=== PATIENT | male | born 1975 | race Caucasian/White ===

== ENCOUNTER 2019-02-05 15:23 | Emergency (ER) | payer SELFPAY ==
[~2019-02-05] VITALS: Ht 177 cm; Wt 82.0 kg
[2019-02-05] MEDS ORDERED: PRD20T PO (15:34)
[2019-02-05] MEDS ORDERED: AMOX500C2 PO (15:34)
--- NOTE | 2019-02-05 15:35 | ED EENT ---
History of Present Illness General Stated Complaint: CAN'T HEAR OUT OF L EAR Source: patient Exam Limitations: no limitations History of Present Illness Date Seen by Provider: Feb 05, 2019 Time Seen by Provider: 15:31 Initial Comments Can't hear out of his left ear for 2 weeks. No fever no pain no other symptoms no nasal congestion Timing/Duration: gradual Severity: moderate Location: ear (L) Associated Symptoms: denies symptoms Allergies and Home Medications Patient Home Medication List Home Medication List Reviewed: Yes Review of Systems Review of Systems Constitutional: see HPI Eyes: No Symptoms Reported Ears: See HPI Nose: no symptoms reported Mouth: no symptoms reported Throat: no symptoms reported Respiratory: no symptoms reported Cardiovascular: no symptoms reported Musculoskeletal: no symptoms reported Past Kjrgmig-Jtiumu-Wdlxsd Hx Patient Social History Recent Foreign Travel: No Contact w/Someone Who Travel: No Physical Exam Height, Weight, BMI Height: '" Weight: lbs. oz. kg; BMI Method: General Appearance: WD/WN, no apparent distress Eyes: bilateral eye normal inspection, bilateral eye PERRL, bilateral eye EOMI Ears: left ear TM bulging, left ear other (serous otitis. No mastoid tenderness or redness) Mouth/Throat: normal mouth inspection, pharynx normal Neck: non-tender, full range of motion Neurologic/Psychiatric: alert, normal mood/affect, oriented x 3 Skin: normal color, warm/dry Departure Impression Primary Impression: Serous otitis media Qualified Codes: H65.02 - Acute serous otitis media, left ear Additional Impression: Hearing loss in left ear Qualified Codes: H91.92 - Unspecified hearing loss, left ear Disposition: HOME, SELF-CARE Condition: Stable Departure-Patient Inst. Decision time for Depature: 15:33 Referrals: MERA CREWS MD,AVINASH STEWART,DIANA BLOOM,RAMIRO BHATIA,VAN SMYTH,LOCAL PHYSICIAN (PCP) Primary Care Physician Patient Instructions: Serous Otitis Media, Hearing Loss in Adults Add. Discharge Instructions: 1. Antibiotics and steroids as directed. Tomorrow, call either Dr. Crews from ear nose and throat specialty or a family physician to make an appointment to be seen for further evaluation of this problem.. Scripts Prednisone (Prednisone) 20 Mg Tab 40 MG PO DAILY, #6 TAB 0 Refills Prov: MADHURI HURST LOCKSTITCH WAISTLINE JOINER 12/22/19 Amoxicillin (Amoxicillin) 500 Mg Capsule 500 MG PO TID, #21 CAP 0 Refills Prov: MADHURI HURST APRN 02/05/19 MADHURI HURST APRN Feb 05, 2019 15:35
[2019-02-05 15:40] VITALS: BP 102/66
== END 2019-02-05 15:45 | disposition home or self-care (01) ==
LOC: ER 15:25
DX: H65.92 Unspecified nonsuppurative otitis media, left ear (principal)
CPT/HCPCS: 99282

== ENCOUNTER 2020-01-09 10:31 | Emergency (ER) | payer SELFPAY ==
[~2020-01-09] VITALS: Ht 177 cm; Wt 81.6 kg
[~2020-01-09 10:31] MED LIST: AMOX500C2 PO; PRD20T PO
[2020-01-09] MEDS ORDERED: KETOROLAC 60 MG/2 ML VIAL IM STA (11:06)
[2020-01-09] MEDS ORDERED: ORPHENADRINE 60 MG/2 ML (NORFLEX) AMP (ED ONLY) IM STA (11:06)
--- NOTE | 2020-01-09 11:13 | ED Back Pain ---
General Chief Complaint: Back Problems Stated Complaint: L BACK PAIN Nursing Triage Note: PT PRESENTS TO ED WITH COMPLAINTS OF CHRONIC LOW BACK PAIN THAT WORSENED OVER THE LAST COUPLE OF DAYS WHEN HE WAS AT WORK. Nursing Sepsis Screen: No Definite Risk Source of Information: Patient Exam Limitations: No Limitations History of Present Illness Date Seen by Provider: Jan 09, 2020 Time Seen by Provider: 10:57 Initial Comments Here with report of low back pain on the left side. States it started this weekend when he was working at home worsened yesterday and today. 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 That made things worse. Denies bowel or bladder incontinence and is walking okay but has pain. Has not had anything for the pain. Denies fever or chills. Denies weakness. 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 Location: Lumbar Spine, Paraspinous Muscles Timing/Duration: 3-4 Days Severity: Moderate Pain/Injury Location: Back Radiation: Buttocks Method of Injury: Other (Lifting) Modifying Factors: Improves With Immobilization; Worse With Movement Associated Symptoms: muscle spasms; No fever, No weakness, No numbness in leg s/feet, No tingling in legs/feet, No sensory/motor loss; lower back pain; No loss of bladder control, No loss of bowel control Allergies and Home Medications Allergies Coded Allergies: diphenhydramine (Verified Allergy, Unknown, 01/09/20) acetaminophen (Verified Adverse Reaction, Unknown, Nausea, 01/09/20) Home Medications Amoxicillin 500 Mg Capsule, 500 MG PO TID Prescribed by: MADHURI HURST on 02/05/19 1534 Prednisone 20 Mg Tab, 40 MG PO DAILY Prescribed by: MADHURI HURST on 02/05/19 1534 Patient Home Medication List Home Medication List Reviewed: Yes Review of Systems Constitutional: see HPI; No chills, No fever Respiratory: no symptoms reported Cardiovascular: no symptoms reported Musculoskeletal: see HPI Skin: No change in color, No lesions Psychiatric/Neurological: See HPI Past Jfgutsb-Ymqcok-Rhddaz Hx Past Med/Social Hx: Reviewed Nursing Past Med/Soc Hx Patient Social History Alcohol Use: Occasionally Uses Recreational Drug Use: No Smoking Status: Current Everyday Smoker Type Used: Cigarettes Recent Foreign Travel: No Contact w/Someone Who Travel: No Recent Infectious Disease Expo: No Recent Hopitalizations: No Physical Abuse: No Sexual Abuse: No Mistreated: No Fear: No Seasonal Allergies Seasonal Allergies: No Past Medical History Surgeries: No Respiratory: No Cardiac: No Neurological: No Genitourinary: No Gastrointestinal: No Musculoskeletal: No Endocrine: No HEENT: No Cancer: No Psychosocial: No Integumentary: No Blood Disorders: No Adverse Reaction/Blood Tranf: No Family Medical History Reviewed Nursing Family Hx Physical Exam Vital Signs Vital Signs - First Documented 01/09/20 10:40 Temp 36.1 Pulse 71 Resp 16 B/P (MAP) 127/81 (96) Pulse Ox 99 Capillary Refill : Less Than 3 Seconds Height, Weight, BMI Height: '" Weight: lbs. oz. kg; 26.00 BMI Method: General Appearance: WD/WN, Mild Distress Cardiovascular: Regular Rate, Rhythm, No Murmur Respiratory: Lungs Clear, Normal Breath Sounds Back: Muscle Spasm; No Vertebral Tenderness; Other (Left paraspinous muscle s pasms and pain in the lumbar region) Extremity: Normal Range of Motion, Non Tender Neurologic/Psychiatric: Alert, Oriented x3 Progress/Results/Core Measures Results/Orders Vital Signs/I&O 01/09/20 10:40 Temp 36.1 Pulse 71 Resp 16 B/P (MAP) 127/81 (96) Pulse Ox 99 Blood Pressure Mean: 96 Progress Progress Note : Progress Note Seen and evaluated. Toradol 60 mg IM and Norflex 60 mg IM. Discharged home with return precautions. Patient verbalized understanding of instructions and agreement with plan. Departure Impression Primary Impression: Strain of lumbar paraspinal muscle Qualified Codes: S39.012A - Strain of muscle, fascia and tendon of lower back, initial encounter Additional Impression: Low back pain Qualified Codes: M54.5 - Low back pain Disposition: HOME, SELF-CARE Condition: Stable Departure-Patient Inst. Decision time for Depature: 11:12 Referrals: NO,LOCAL PHYSICIAN (PCP/Family) Primary Care Physician Patient Instructions: Lumbar Muscle Strain (DC), Low Back Pain (DC) Add. Discharge Instructions: All discharge instructions reviewed with patient and/or family. Voiced understanding. Take medication as directed. You may use [id number] Icy Hot with lidocaine patches, Aspercreme with lidocaine patches, Salonpas with lidocaine patches or similar items to area of concern per package directions. Follow-up w ith your doctor in a few days for recheck. Return for worse pain, weakness, numbness between your legs, difficulty with walking or going to the bathroom or other concerns as needed. Scripts Cyclobenzaprine HCl (Cyclobenzaprine HCl) 10 Mg Tablet 10 MG PO Q8H PRN for SPASMS, #15 TAB 0 Refills Prov: JORDANA KILPATRICK MD 01/09/20 Prednisone (Prednisone) 20 Mg Tab 40 MG PO DAILY, #14 TAB 0 Refills Prov: JORDANA KILPATRICK MD 01/09/20 Naproxen (Naprosyn) 500 Mg Tablet 500 MG PO BID, #30 TAB 0 Refills Prov: JORDANA KILPATRICK MD 01/09/20 JORDANA KILPATRICK MD Jan 09, 2020 11:12
[2020-01-09] MEDS ORDERED: PRD20T PO (11:14)
[2020-01-09] MEDS ORDERED: CYCL10TA9 PO (11:14)
[2020-01-09] MEDS ORDERED: NAPR-1071 PO (11:14)
[2020-01-09 11:36] VITALS: BP 107/72
== END 2020-01-09 11:35 | disposition home or self-care (01) ==
LOC: EDUNIT# 10:31 → ER 10:32
DX: S39.012A Strain of muscle, fascia and tendon of lower back, initial encounter (principal); F17.210 Nicotine dependence, cigarettes, uncomplicated; Z88.6 Allergy status to analgesic agent; Z88.8 Allergy status to other drugs, medicaments and biological substances; Z79.52 Long term (current) use of systemic steroids; X50.0XXA Overexertion from strenuous movement or load, initial encounter
CPT/HCPCS: 99284

== ENCOUNTER → 2020-05-27 | Outpatient (CLI) | payer SELFPAY ==
[~2020-05-27] MED LIST changes: +CYCL10TA9 PO; +NAPR-1071 PO
--- NOTE | 2020-05-27 12:41 | Diagnostic Imaging Report ---
EXAMINATION: Magnetic resonance imaging of the left shoulder without contrast. DATE: May 27, 2020. COMPARISON: None. HISTORY: 45-year-old male, left shoulder pain. TECHNIQUE: Magnetic Resonance Imaging sequences were performed of the shoulder without contrast. FINDINGS: ROTATOR CUFF, LIGAMENTS, TENDONS, AND MUSCLES: The supraspinatus, infraspinatus, teres minor, and subscapularis tendons and muscles are intact. There is low-level edema in the supraspinatus and infraspinatus muscles. There is no fatty muscle atrophy. LONG HEAD OF BICEPS: The biceps labral attachment and long head of the biceps tendon is intact. The long head of the biceps tendon is normally positioned within the bicipital groove. GLENOHUMERAL JOINT: The humeral head is well positioned relative to the glenoid. The labrum is grossly intact. There is no identified paralabral cyst. The articular cartilage is grossly intact. There is no joint effusion. ACROMIOCLAVICULAR JOINT: The acromioclavicular joint is normally aligned. The coracoclavicular and coracoacromial ligaments are intact. There are mild acromioclavicular degenerative changes without undersurface osteophyte. BONE: There is no os acromiale. There is no Hill-Sachs deformity. There is degenerative related marrow edema adjacent to the acromioclavicular joint. There is no acute fracture, bone contusion, or evidence of osteonecrosis. BURSAE AND SOFT TISSUES: The bursae and soft tissue surrounding the shoulder are unremarkable. IMPRESSION: 1. Intact rotator cuff tendons and proximal long head of biceps tendon. 2. Low level edema in the supraspinatus and infraspinatus muscles. Differential diagnostic considerations would include low-grade muscle strains, early denervation related signal changes, and/or myositis. No MRI visible causes of denervation related edema in the included field of view. 3. Mild acromioclavicular degenerative changes without undersurface osteophyte. 4. Grossly intact labrum and unremarkable additional glenohumeral joint evaluation. 5. No acute fracture, bone contusion, or evidence of osteonecrosis. Dictated by: Dictated on workstation # [id number]
--- NOTE | 2020-05-27 12:54 | Diagnostic Imaging Report ---
Clinical indication: Patient with neck and left shoulder and arm pain couple weeks ago. No known injury. Exam: MRI of the cervical spine performed without IV contrast. Sequences include sagittal T1, sagittal T2, sagittal T2 fat-sat, and axial T2. Comparison: None. Findings: Limited visualization of posterior fossa unremarkable. There is mild cord deformity involving the C4-C5 and C5-C6 level due to disk disease. There is no cervical cord signal abnormality. There is straightening of the cervical spine posture. There is no acute cervical spine fracture or dislocation. There is an intraosseous hemangioma within the C4 and C6 vertebra. There is no significant paraspinal soft tissue abnormality. There are degenerative spurs anteriorly involving the mid to lower cervical spine. C1-C2: There is no significant central canal narrowing. C2-C3: There is mild bilateral facet arthropathy. There is mild left neural foramen narrowing and no significant central canal narrowing. There is at least mild central canal narrowing. There is a small posterior disk bulge. C3-C4: Mildly hypertrophic left uncinate spurs are seen with moderate to severe left neural foramen narrowing. There is at least mild right neural foramen narrowing. There is moderate central canal stenosis. C4-C5: There is a diffuse disk bulge with superimposed moderate sized disk extrusion/herniation in the left subarticular and left foraminal region. There is severe left neural foramen narrowing and moderate to severe right neural foramen narrowing. There is severe central canal stenosis. There is mild loss of disk space height. C5-C6: There is a diffuse disk bulge with moderate loss of disk space height and bilateral uncinate spurs. There is severe bilateral neural foramen narrowing. There is moderate to severe central canal stenosis. C6-C7: There is a small posterior disk bulge. There is left-sided disk spurs and mild bilateral facet arthropathy. There is severe left neural foramen narrowing and at least moderate right neural foramen narrowing. There is moderate central canal narrowing. C7-T1: There is at least mild bilateral neural foramen narrowing. There is no significant central canal narrowing. IMPRESSION: 1: There is multilevel cervical spine degenerative disk disease which is described in detail above. 2: There is a C4-C5 diffuse disk bulge with superimposed moderate disk herniation in the left subarticular/foraminal region which causes severe central canal stenosis, severe left neural foramen narrowing and moderate to severe right neural foramen narrowing. 3: There is multilevel central canal stenosis with moderate to severe C5-C6 central canal narrowing and moderate C3-C4 and C6-C7 central canal narrowing. 4: There is multilevel neural foramen narrowing, as described above. Dictated by: Dictated on workstation # [id number]
== END ==
LOC: RAD 10:27
PROVIDERS: ATTEND Pediatrics
DX: M50.321 Other cervical disc degeneration at C4-C5 level (principal); M50.21 Other cervical disc displacement, high cervical region; M47.812 Spondylosis without myelopathy or radiculopathy, cervical region; M48.03 Spinal stenosis, cervicothoracic region
CPT/HCPCS: 72141; 73221

== ENCOUNTER 2022-11-22 20:03 | Inpatient (IN) | payer SELFPAY ==
[~2022-11-22] VITALS: Ht 177.8 cm; Wt 68.5 kg
[~2022-11-22 20:03] MED LIST changes: +CYCL10TA25 PO; -CYCL10TA9 PO
[2022-11-22] MEDS ORDERED: NS IV 1000 ML 1,000 ML IV SCH (20:45)
[2022-11-22] MEDS ORDERED: fentaNYL INJECTION 100 MCG/2 ML VIAL IVP ONE (20:45)
--- NOTE | 2022-11-22 20:51 | ED EENT ---
History of Present Illness General Chief Complaint: Dental Problems/Pain Stated Complaint: DENTAL PAIN/INFECTION Nursing Triage Note: PT AMB TO RM 3 WITH SPOUSE WITH C/O R WISDOM TOOTH PAIN SINCE WEDNESDAY. PT STATES IT RECENTLY GREW IN AND MIGHT BE INFECTED. PT TOOK ALEVE THIS AM AT 0200 Source: patient, family Exam Limitations: no limitations History of Present Illness Date Seen by Provider: Nov 22, 2022 Time Seen by Provider: 20:37 Initial Comments 47-year-old male presents to the ER with complaint of right lower dental pain since Wednesday. He also reports swelling in his face and jaw. Reports difficulty swallowing. Also reports difficulty opening his mouth. Denies shortness of air. Denies fevers. Allergies and Home Medications Allergies Coded Allergies: Penicillins (Unverified Allergy, Unknown, Vomiting, 11/22/22) diphenhydramine (Verified Allergy, Unknown, 01/09/20) acetaminophen (Verified Adverse Reaction, Unknown, Nausea, 01/09/20) Patient Home Medication List Home Medication List Reviewed: Yes Clindamycin HCl (Cleocin HCl) 300 Mg Capsule, 300 MG PO TID Prescribed by: INDIO MAY on 11/24/221736 Hydrocodone/Acetaminophen (Hydrocodone-Acetamin 5-325 mg) 5 Mg-325 Mg Tablet, 1 TAB PO Q4-6HR PRN for PAIN-MODERATE (5-7) Prescribed by: INDIO MAY on 11/24/22 173 Naproxen Sodium (Aleve) 220 Mg Tablet, 220 MG PO Q12H PRN for PAIN-MILD (1-4), (Reported) Entered as Reported by: FABIANA CRAIG on 11/23/22 1301 Last Action: Held Discontinued Medications Amoxicillin (Amoxicillin) 500 Mg Capsule, 500 MG PO TID Discontinued Reason: No Longer Taking Prescribed by: MADHURI HURST on 02/05/19 1534 Last Action: Discontinued Cyclobenzaprine HCl (Cyclobenzaprine HCl) 10 Mg Tablet, 10 MG PO Q8H PRN for SPASMS Discontinued Reason: No Longer Taking Prescribed by: JORDANA KILPATRICK on 01/09/20 1114 Last Action: Discontinued Naproxen (Naprosyn) 500 Mg Tablet, 500 MG PO BID Discontinued Reason: No Longer Taking Prescribed by: JORDANA KILPATRICK on 01/09/20 1114 Last Action: Discontinued Prednisone (Prednisone) 20 Mg Tab, 40 MG PO DAILY Discontinued Reason: No Longer Taking Prescribed by: MADHURI HURST on 02/05/19 1534 Last Action: Discontinued Prednisone (Prednisone) 20 Mg Tab, 40 MG PO DAILY Discontinued Reason: No Longer Taking Prescribed by: JORDANA KILPATRICK on 01/09/20 1114 Last Action: Discontinued Review of Systems Review of Systems Constitutional: see HPI Past Bakiezh-Vsvtok-Mzuqta Hx Patient Social History Tobacco Use?: Yes Tobacco type used: Cigarettes Substance use?: Yes Substance type: Marijuana Alcohol Use?: Yes Alcohol type: Beer, Hard Liquor Pt feels they are or have been: No Seasonal Allergies Seasonal Allergies: No Past Medical History Surgery/Hospitalization HX: NECK SURG, EAR SURG Surgeries: No Respiratory: No Cardiac: No Neurological: No Genitourinary: No Gastrointestinal: No Musculoskeletal: No Endocrine: No HEENT: No Cancer: No Psychosocial: No Integumentary: No Blood Disorders: No Adverse Reaction/Blood Tranf: No Physical Exam Vital Signs Vital Signs - First Documented 11/22/22 20:20 Temp 37.7 Pulse 103 Resp 16 B/P (MAP) 142/93 (109) Pulse Ox 100 O2 Delivery Room Air Height, Weight, BMI Height: '" Weight: lbs. oz. kg; 24.00 BMI Method: General Appearance: WD/WN, no apparent distress Mouth/Throat: dental tenderness, mandibular swelling, other (Floor of mouth swollen, small airway. Only has 1 tooth, this is location of pain) Cardiovascular: regular rate, rhythm Respiratory: lungs clear, normal breath sounds, no respiratory distress, no accessory muscle use Neurologic/Psychiatric: alert, normal mood/affect Skin: normal color, warm/dry Progress/Results/Core Measures Results/Orders Lab Results My Orders Medications Given in ED Vital Signs/I&O Blood Pressure Mean: 109 Progress Progress Note : Progress Note Patient seen and evaluated, resting in bed, no acute distress. Based on exam and symptoms, I am concerned for Darshan's angina. Work-up initiated including CBC, CMP, coags, blood cultures x2, lactic acid. CT soft tissue neck ordered. Labs and CT reviewed. CBC shows elevated WBC 15.8, neutrophil percentage elevated 82. CMP shows decreased potassium 3.1. Lactic acid normal 1.15. Blood glucose slightly elevated 126. Coags normal. CT shows fluid collection in the sublingual space midline area, concerning for abscess. There is also mass effect upon the adjacent structures. No significant airway narrowing or tongue involvement. Concerning for Darshan's angina. There is also enlargement of the right submandibular gland and sialadentis is of concern. Decadron and clindamycin ordered. I called and spoke with Dr. Crews, ENT, he is going to come in and see the patient. He states that the abscess will likely need drained. I discussed the plan of care with the patient. Patient states he wants to leave, because pain medication has not been helping. So far he is gotten fentanyl and morphine. I ordered 1 mg of Dilaudid, he is now resting comfortably. Waiting on Dr. Crews to arrive. Dr. Crews here to evaluate patient. He would like to take patient to the OR tonight. He wants patient admitted to him, he will consult medicine in the morning. He will place admission orders. Diagnostic Imaging Diagonstic Imaging: CT Plain Films/CT/US/NM/MRI: other (neck) Comments [facility], [place] NAME: KIM MUSA [facility] REC#: [id number] PT STATUS: REG ER : 1975 PHYSICIAN: JHONATHAN CLARK APRN ADMIT DATE: 11/22/22/ER Signed Date of Exam:11/22/22 CT NECK (SOFT TISSUE) W CLINICAL INDICATION: Patient with right-sided facial swelling. Rule out Darshan's angina. EXAM: Axial CT scan of the neck soft tissues performed with 75 cc of Omnipaque 350 IV contrast. Sagittal and coronal reformatted images were created. Auto Exposure Controls were utilized during the CT exam to meet ALARA standards for radiation dose reduction. COMPARISON: MRI of the cervical spine without contrast dated 05/27/2020. FINDINGS: There is enlargement of the right submandibular gland with adjacent fat stranding. There appear to be slightly dilated intraglandular ducts of the right submandibular gland. There is no stone seen. There is a fluid collection which is deep to the anterior belly of the digastric muscles and is in the midline area which is beneath the genioglossus muscle and appears to be deep to the mylohyoid muscle, concerning for a sublingual space fluid collection which may represent abscess. This fluid collection measures grossly 4.6 cm x 5.6 cm x 1.9 cm (AP x Trans x CC). There is fat stranding adjacent to the region. There is no significant mass effect upon the tongue or airway narrowing due to this fluid collection. The left submandibular gland and parotid glands are unremarkable. The visualized portions of the oral cavity and tongue show no other significant abnormality. There is skin thickening beneath the region of the chin with adjacent fat stranding. There is prominence of the nasopharyngeal soft tissue, likely reactive. The oropharynx, hypopharynx, and laryngeal soft tissue structures are unremarkable. There are multiple small lymph nodes involving both sides of the neck. The thyroid gland is partially obscured by ACDF hardware. There appears to be a possible nodule involving the right thyroid lobe. Limited visualization of the intracranial structures is unremarkable. The orbits and globes are unremarkable. There is a small amount of secretions involving the left frontal sinus region. There are wall down left mastoidectomy changes seen. There is a small amount of consolidation involving both mastoid air cells. There is C3 through C7 ACDF. The visualized upper lung brannon are clear. Centrilobular emphysema is noted. IMPRESSION: 1: There is a fluid collection in the sublingual space midline area, concerning for an abscess. There is mass effect upon the adjacent structures with no significant mass effect upon the tongue or airway narrowing. These findings may be seen with Darshan's angina. 2: There is enlargement of the right submandibular gland and sialadenitis is of concern. Unknown if the right submandibular gland disease is the culprit for the sublingual space fluid collection. Dictated by: Dictated on workstation # [id number] Dict: 11/22/[id number] Trans: 11/22/222214 [id number] Interpreted by: KATIE HWANG MD Electronically signed by: KATIE HWANG MD 11/22/222214 Departure Communication (Admissions) Time/Spoke to Admitting Phy: 22:55 Dr. Crews, see progress note Impression Primary Impression: Ludwigs angina Additional Impression: Sialadenitis Disposition: ADMITTED INPATIENT Condition: Stable Admissions Decision to Admit Reason: Admit from ER (General) Decision to Admit/Date: Nov 23, 2022 Time/Decision to Admit Time: 00:16 Departure-Patient Inst. Referrals: ONELIA ANSARI DO (PCP/Family) Primary Care Physician Scripts Hydrocodone/Acetaminophen (Hydrocodone-Acetamin 5-325 mg) 5 Mg-325 Mg Tablet 1 TAB PO Q4-6HR PRN for PAIN-MODERATE (5-7), #20 TAB Prov: MERA CREWS MD 11/24/22 Clindamycin HCl (Cleocin HCl) 300 Mg Capsule 300 MG PO TID for 10 Days, #30 CAP Prov: MERA CREWS MD 11/24/22 JHONATHAN CLARK APRN Nov 22, 2022 20:51
[2022-11-22] MEDS ORDERED: NS 100 ML (IVPB) BAG IV ONE (21:00)
[2022-11-22] MEDS ORDERED: IOHEXOL 350 MG/ML 100 ML (OMNIPAQUE 350) VIAL IV ONE (21:00)
[2022-11-22] MEDS ORDERED: HOLD METFORMIN - RECEIVED CONTRAST 20 ML VIAL IV SCH (21:00)
[2022-11-22 21:02] LABS: BASOPHILS % (AUTO) 0 % (0-10); EOSINOPHILS % (AUTO) 0 % (0-10); HEMATOCRIT 46 % (40-54); HEMOGLOBIN 16.4 g/dL (13.3-17.7); LYMPHOCYTES # (AUTO) 1.6 10^3/uL (1.0-4.0); LYMPHOCYTES % (AUTO) 10 % (12-44); MEAN CORPUSCULAR HEMOGLOBIN 32 pg (25-34); MEAN CORPUSCULAR HGB CONC 36 g/dL (32-36); MEAN CORPUSCULAR VOLUME 90 fL (80-99); MEAN PLATELET VOLUME 9.9 fL (9.0-12.2); MONOCYTES # (AUTO) 1.3 10^3/uL (0.0-1.0); MONOCYTES % (AUTO) 8 % (0-12); NEUTROPHILS # (AUTO) 12.9 10^3/uL (1.8-7.8); NEUTROPHILS % (AUTO) 82 % (42-75); PLATELET COUNT 246 10^3/uL (130-400); WHITE BLOOD COUNT 15.8 10^3/uL (4.3-11.0)
[2022-11-22 21:15] LABS: PROTHROMBIN TIME PATIENT 13.3 SEC (12.2-14.7)
[2022-11-22 21:21] LABS: BILIRUBIN,TOTAL 0.9 MG/DL (0.1-1.0); CALCIUM 9.2 MG/DL (8.5-10.1); CREATININE SERUM 0.84 MG/DL (0.60-1.30); POTASSIUM 3.1 MMOL/L (3.6-5.0)
[2022-11-22 21:36] LABS: BAND NEUTROPHILS 1 %; LYMPHOCYTES % (MANUAL) 13 %; MONOCYTES % (MANUAL) 8 %; NEUTROPHILS % (MANUAL) 78 %; RBC MORPH NORMAL
[2022-11-22] MEDS: morphine INJ 4 MG/ML 1 ML (VIAL/SYRINGE) IVP ONE ×2 (22:03→22:06)
--- NOTE | 2022-11-22 22:13 | Diagnostic Imaging Report ---
CLINICAL INDICATION: Patient with right-sided facial swelling. Rule out Darshan's angina. EXAM: Axial CT scan of the neck soft tissues performed with 75 cc of Omnipaque 350 IV contrast. Sagittal and coronal reformatted images were created. Auto Exposure Controls were utilized during the CT exam to meet ALARA standards for radiation dose reduction. COMPARISON: MRI of the cervical spine without contrast dated 05/27/2020. FINDINGS: There is enlargement of the right submandibular gland with adjacent fat stranding. There appear to be slightly dilated intraglandular ducts of the right submandibular gland. There is no stone seen. There is a fluid collection which is deep to the anterior belly of the digastric muscles and is in the midline area which is beneath the genioglossus muscle and appears to be deep to the mylohyoid muscle, concerning for a sublingual space fluid collection which may represent abscess. This fluid collection measures grossly 4.6 cm x 5.6 cm x 1.9 cm (AP x Trans x CC). There is fat stranding adjacent to the region. There is no significant mass effect upon the tongue or airway narrowing due to this fluid collection. The left submandibular gland and parotid glands are unremarkable. The visualized portions of the oral cavity and tongue show no other significant abnormality. There is skin thickening beneath the region of the chin with adjacent fat stranding. There is prominence of the nasopharyngeal soft tissue, likely reactive. The oropharynx, hypopharynx, and laryngeal soft tissue structures are unremarkable. There are multiple small lymph nodes involving both sides of the neck. The thyroid gland is partially obscured by ACDF hardware. There appears to be a possible nodule involving the right thyroid lobe. Limited visualization of the intracranial structures is unremarkable. The orbits and globes are unremarkable. There is a small amount of secretions involving the left frontal sinus region. There are wall down left mastoidectomy changes seen. There is a small amount of consolidation involving both mastoid air cells. There is C3 through C7 ACDF. The visualized upper lung brannon are clear. Centrilobular emphysema is noted. IMPRESSION: 1: There is a fluid collection in the sublingual space midline area, concerning for an abscess. There is mass effect upon the adjacent structures with no significant mass effect upon the tongue or airway narrowing. These findings may be seen with Darshan's angina. 2: There is enlargement of the right submandibular gland and sialadenitis is of concern. Unknown if the right submandibular gland disease is the culprit for the sublingual space fluid collection. Dictated by: Dictated on workstation # [id number]
[2022-11-22] MEDS ORDERED: CLINDAMYCIN 900 MG/50 ML IVPB 50 ML IV ONE (22:15)
[2022-11-22] MEDS ORDERED: dexAMETHasone INJ 10 MG/ML 1 ML VIAL IV ONE (22:15)
[2022-11-22] MEDS ORDERED: HYDROmorphone INJECTION 2 MG/ML VIAL IV ONE (23:15)
[2022-11-23] VITALS (12 sets, daily range): BP systolic 124–162; BP diastolic 72–91
[2022-11-23] MEDS ORDERED: LIDOCAINE/EPI 1%-1:200,000 (XYLOCAINE) 30 ML VIAL ONE (00:35)
--- NOTE | 2022-11-23 00:38 | Progress Note-Pre Operative ---
Pre-Operative Progress Note Date of Available H&P: Nov 23, 2022 Date H&P Reviewed: Nov 23, 2022 Time H&P Reviewed: 12:00 History & Physical: H&P Reviewed, Patient Examed, No changes noted Changes from last HP none Pre-Operative Diagnosis: Right Neck Abscess/Dental Abscess MERA PAEZ MD Nov 23, 2022 00:38
--- NOTE | 2022-11-23 00:39 | Progress Note-Post Operative ---
Post-Operative Progess Note Surgeon (s)/Bank President (s) Surgeon MERA PAEZ MD Bank President n/a Pre-Operative Diagnosis Right Neck Abscess/Dental Abscess Post-Operative Diagnosis same Post-Op Procedure Note Date of Procedure: Nov 23, 2022 Name of Procedure Performed: I/D Deep Right Neck abscess Description & Findings Description and Findings: n/a Anesthesia Type get Estimated Blood Loss minimal Packing none. Specimen(s) collected/removed none MERA PAEZ MD Nov 23, 2022 00:39
[2022-11-23] MEDS ORDERED: LIDOCAINE/EPI 1%-1:200,000 (XYLOCAINE) 30 ML VIAL INJ ONE (00:43)
--- NOTE | 2022-11-23 00:45 | Progress Note ---
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
[2022-11-23] MEDS ORDERED: ONDANSETRON INJECTION 4 MG/2 ML (SDV) ONE ×2 (00:46→00:57)
[2022-11-23] MEDS ORDERED: LIDOCAINE PF 2% 5 ML VIAL ONE (00:46)
[2022-11-23] MEDS ORDERED: SEVOFLURANE (ULTANE) 15 ML INHAL SOLN ONE ×2 (00:46→01:12)
[2022-11-23] MEDS ORDERED: proPOfol INJECTION 200 MG/20 ML VIAL IV ONE (00:46)
[2022-11-23] MEDS ORDERED: MIDAZOLAM INJ 2 MG/2 ML VIAL ONE (00:46)
[2022-11-23] MEDS ORDERED: morphine INJ 10 MG/ML 1ML (SYR OR VIAL) ONE (00:56)
[2022-11-23] MEDS ORDERED: MEPERIDINE INJ 50 MG/ML VIAL ONE (00:56)
[2022-11-23] MEDS ORDERED: HYDROmorphone INJECTION 2 MG/ML VIAL ONE (00:57)
[2022-11-23] MEDS ORDERED: SUCCINYLCHOLINE INJ 20 MG/1 ML 10 ML VIAL ONE (01:00)
[2022-11-23] MEDS ORDERED: LACTATED RINGERS 1,000 ML 1,000 ML IV PRN ×2 (01:30→01:45)
[2022-11-23] MEDS ORDERED: morphine INJ 10 MG/ML 1ML (SYR OR VIAL) IVP ONE (01:45)
[2022-11-23] MEDS ORDERED: ONDANSETRON INJECTION 4 MG/2 ML (SDV) IVP PRN ×2 (01:45)
[2022-11-23] MEDS ORDERED: fentaNYL INJECTION 100 MCG/2 ML VIAL IVP ONE (01:45)
[2022-11-23] MEDS ORDERED: MEPERIDINE INJ 50 MG/ML VIAL IVP ONE (01:45)
[2022-11-23] MEDS: NS IV 1000 ML 1,000 ML IV SCH ×2 (02:38→20:21)
[2022-11-23] MEDS: HYDROmorphone INJECTION 2 MG/ML VIAL IV PRN ×3 (03:04→14:24)
[2022-11-23] MEDS: CLINDAMYCIN 900 MG/50 ML IVPB 50 ML IV SCH ×3 (06:00→22:26)
[2022-11-23] MEDS: dexAMETHasone INJ 4 MG/ML SDV IV SCH ×3 (06:00→22:29)
[2022-11-23] MEDS ORDERED: oxyCODONE 5 MG/5 ML ORAL SOLN 5 ML UDC PO PRN (08:30)
[2022-11-23 08:43] LABS: HEMATOCRIT 44 % (40-54); HEMOGLOBIN 15.3 g/dL (13.3-17.7); MEAN CORPUSCULAR HEMOGLOBIN 32 pg (25-34); MEAN CORPUSCULAR HGB CONC 35 g/dL (32-36); MEAN CORPUSCULAR VOLUME 91 fL (80-99); MEAN PLATELET VOLUME 9.8 fL (9.0-12.2); PLATELET COUNT 221 10^3/uL (130-400); WHITE BLOOD COUNT 16.1 10^3/uL (4.3-11.0)
[2022-11-23 09:01] LABS: CREATININE SERUM 0.79 MG/DL (0.60-1.30); POTASSIUM 4.4 MMOL/L (3.6-5.0)
--- NOTE | 2022-11-23 12:32 | History & Physical ---
HPI History of Present Illness: Has bad wisdom tooth on right side that he states came in this year when it came through it was already rotten. On Wednesday started getting really bad and got to the point he couldn't swallow. Now postdrainage, he can swallow and has tolerated some intake. Source: patient Date seen by provider: Nov 23, 2022 Time Seen by Provider: 12:25 Attending Physician Clemente Granado DO PCP Admitting Physician: Parish Crews MD Attending Physician: Parish Crews MD Consult Date of Admission Nov 23, 2022 at 01:40 Home Medications Home Medications Reviewed patient Home Medication Reconciliation performed by pharmacy medication reconciliations server support technician and/or nursing. Patients Allergies have been reviewed. Allergies Coded Allergies: Penicillins (Unverified Allergy, Unknown, Vomiting, 11/22/22) diphenhydramine (Verified Allergy, Unknown, 01/09/20) acetaminophen (Verified Adverse Reaction, Unknown, Nausea, 01/09/20) [id number] Hx Patient Social History Smoking Status: Current Everyday Smoker Recent Hopitalizations: No Alcohol Use?: Yes (12 pack per month, 2-3 shots per day of [place] Honey) Substance type: Marijuana Tobacco type used: Cigarettes Immunizations Up To Date Influenza Vaccine Up-to-Date: No; Not Current Past Medical History PMHx: Denies SurgHx: C3-C7 discectomy/fusion Left eardrum reconstruction after severe infection/abscess Pilonidal cyst 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1 Family Medical History Significant Family History: Heart Disease, Cancer (father- lung) Review of Systems ([facility]) Constitutional: No fever EENTM: No nose congestion Respiratory: No cough, No short of breath Cardiovascular: No chest pain Gastrointestinal: No abdominal pain; diarrhea (chronic, reports IBS); No nausea, No vomiting Genitourinary: No dysuria Musculoskeletal: No joint pain Skin: No rash Reviewed Test Results Reviewed Test Results Lab Laboratory Tests Test 11/22/22 21:00 11/23/22 08:37 Range/Units White Blood Count 15.8 H 16.1 H 4.3-11.0 10^3/uL Red Blood Count 5.14 4.81 4.30-5.52 10^6/uL Hemoglobin 16.4 15.3 13.3-17.7 g/dL Hematocrit 46 44 40-54 % Mean Corpuscular Volume 90 91 80-99 fL Mean Corpuscular Hemoglobin 32 32 25-34 pg Mean Corpuscular Hemoglobin Concent 36 35 32-36 g/dL Red Cell Distribution Width 12.2 12.0 10.0-14.5 % Platelet Count 246 221 130-400 10^3/uL Mean Platelet Volume 9.9 9.8 9.0-12.2 fL Immature Granulocyte % (Auto) 0 % Neutrophils (%) (Auto) 82 H 42-75 % Lymphocytes (%) (Auto) 10 L 12-44 % Monocytes (%) (Auto) 8 0-12 % Eosinophils (%) (Auto) 0 0-10 % Basophils (%) (Auto) 0 0-10 % Neutrophils # (Auto) 12.9 H 1.8-7.8 10^3/uL Lymphocytes # (Auto) 1.6 1.0-4.0 10^3/uL Monocytes # (Auto) 1.3 H 0.0-1.0 10^3/uL Eosinophils # (Auto) 0.0 0.0-0.3 10^3/uL Basophils # (Auto) 0.0 0.0-0.1 10^3/uL Immature Granulocyte # (Auto) 0.1 0.0-0.1 10^3/uL Neutrophils % (Manual) 78 % Lymphocytes % (Manual) 13 % Monocytes % (Manual) 8 % Band Neutrophils 1 % Blood Morphology Comment NORMAL Prothrombin Time 13.3 12.2-14.7 SEC INR Comment 1.0 0.8-1.4 Activated Partial Thromboplast Time 32 24-35 SEC Sodium Level 136 138 135-145 MMOL/L Potassium Level 3.1 L 4.4 3.6-5.0 MMOL/L Chloride Level 98 101 98-107 MMOL/L Carbon Dioxide Level 24 25 21-32 MMOL/L Anion Gap 14 12 5-14 MMOL/L Blood Urea Nitrogen 8 8 7-18 MG/DL Creatinine 0.84 0.79 0.60-1.30 MG/DL Estimat Glomerular Filtration Rate 107 109 BUN/Creatinine Ratio 10 10 Glucose Level 126 H 141 H 70-105 MG/DL Lactic Acid Level 1.15 0.50-2.00 MMOL/L Calcium Level 9.2 9.0 8.5-10.1 MG/DL Corrected Calcium 9.2 8.5-10.1 MG/DL Total Bilirubin 0.9 0.1-1.0 MG/DL Aspartate Amino Transf (AST/SGOT) 15 5-34 U/L Alanine Aminotransferase (ALT/SGPT) 15 0-55 U/L Alkaline Phosphatase 100 40-136 U/L Total Protein 7.0 6.4-8.2 GM/DL Albumin 4.0 3.2-4.5 GM/DL Radiology CT neck: IMPRESSION: 1: There is a fluid collection in the sublingual space midline area, concerning for an abscess. There is mass effect upon the adjacent structures with no significant mass effect upon the tongue or airway narrowing. These findings may be seen with Darshan's angina. 2: There is enlargement of the right submandibular gland and sialadenitis is of concern. Unknown if the right submandibular gland disease is the culprit for the sublingual space fluid collection. Physical Exam-([facility]) Physical Exam Vital Signs VS - Last 72 Hours, by Label 11/22/22 11/23/22 11/23/22 11/23/22 20:20 01:40 01:40 01:45 Temp 37.7 Pulse 103 Resp 16 20 B/P (MAP) 142/93 (109) 151/86 (107) Pulse Ox 100 100 O2 Delivery Room Air OxyMask OxyMask OxyMask O2 Flow Rate 3.00 3.00 3.00 11/23/22 11/23/22 11/23/22 11/23/22 01:50 02:00 02:00 02:10 Resp 20 20 20 B/P (MAP) 160/89 (112) 160/90 (113) 161/91 (114) Pulse Ox 100 97 96 O2 Delivery OxyMask Room Air Room Air Room Air O2 Flow Rate 3.00 11/23/22 11/23/22 11/23/22 11/23/22 02:15 02:20 02:30 02:30 Resp 20 20 B/P (MAP) 162/78 (106) 162/78 (106) Pulse Ox 98 96 O2 Delivery Room Air Room Air Room Air Room Air 11/23/22 11/23/22 11/23/22 11/23/22 02:33 02:35 02:35 07:58 Temp 36.5 36.5 Pulse 81 59 Resp 20 16 B/P (MAP) 149/89 (109) 124/77 (93) Pulse Ox 98 98 O2 Delivery Room Air Room Air Room Air Room Air 11/23/22 11/23/22 11/23/22 08:00 11:23 15:57 Temp 35.7 36.3 Pulse 88 78 Resp 17 20 B/P (MAP) 126/75 (92) 129/72 (91) Pulse Ox 98 99 97 O2 Delivery Room Air Room Air Room Air Capillary Refill : Less Than 3 Seconds General Appearance: no apparent distress HEENT: other (poot dentition molars) Respiratory: lungs clear, normal breath sounds Cardiovascular: regular rate, rhythm, no murmur Gastrointestinal: normal bowel sounds, non tender, soft Neurologic/Psychiatric: alert, normal mood/affect Assessment/Plan Assessment/Plan Admission Status: Inpatient Order (span 2 midnights) Reason for Inpatient Admission: Abscess requiring surgical drainage and IV antibiotics (1) Neck abscess Status: Acute Assessment & Plan: s/p drainage per ENT. Appreciate recommendations. Drain in place. Clindamycin and dexamethasone. (2) Dental abscess Status: Acute Assessment & Plan: Will need outpatient dental follow up DIANA FRITZ MD Nov 23, 2022 12:32
[2022-11-23] MEDS ORDERED: NAPR220T66 PO (13:01)
[2022-11-23] MEDS: oxyCODONE 5 MG/5 ML ORAL SOLN 5 ML UDC PO PRN ×2 (17:33→22:22)
[2022-11-24 03:08] VITALS: BP 148/74
[2022-11-24] MEDS: dexAMETHasone INJ 4 MG/ML SDV IV SCH ×2 (05:34→13:51)
[2022-11-24] MEDS: CLINDAMYCIN 900 MG/50 ML IVPB 50 ML IV SCH ×2 (05:34→13:51)
[2022-11-24] MEDS: oxyCODONE 5 MG/5 ML ORAL SOLN 5 ML UDC PO PRN ×2 (05:35→16:46)
[2022-11-24 05:47] LABS: HEMATOCRIT 39 % (40-54); HEMOGLOBIN 13.8 g/dL (13.3-17.7); MEAN CORPUSCULAR HEMOGLOBIN 32 pg (25-34); MEAN CORPUSCULAR HGB CONC 35 g/dL (32-36); MEAN CORPUSCULAR VOLUME 91 fL (80-99); MEAN PLATELET VOLUME 10.4 fL (9.0-12.2); PLATELET COUNT 246 10^3/uL (130-400); WHITE BLOOD COUNT 16.7 10^3/uL (4.3-11.0)
[2022-11-24 07:52] VITALS: BP 100/61
[2022-11-24 11:19] VITALS: BP 103/63
--- NOTE | 2022-11-24 12:16 | Anesthesia-General Post-Op ---
General Patient Condition Mental Status/LOC: Same as Preop Cardiovascular: Satisfactory Nausea/Vomiting: Absent Respiratory: Satisfactory Pain: Controlled Complications: Absent Post Op Complications Complications None Follow Up Care/Instructions Patient Instructions None needed. Anesthesia/Patient Condition Patient Condition Patient is doing well, no complaints, stable vital signs, no apparent adverse anesthesia problems. No complications reported per nursing. NISHA FORBES CRNA Nov 24, 2022 12:16
[2022-11-24] MEDS: HYDROmorphone INJECTION 2 MG/ML VIAL IV PRN (12:43)
--- NOTE | 2022-11-24 14:06 | Progress Note ---
Subjective Subjective/Events-last exam Afebrile. States he is ready to leave and wants to pull out his drain himself so he can go. Focused Exam Lactate Level 11/22/22 21:00: Lactic Acid Level 1.15 Objective Exam Last Set of Vital Signs Vital Signs Date Time Temp Pulse Resp B/P (MAP) Pulse Ox O2 Delivery O2 Flow Rate FiO2 11/24/22 11:19 36.5 83 17 103/63 (76) 98 Room Air 11/24/22 08:00 0.00 Capillary Refill : Less Than 3 Seconds I&O Intake and Output 11/24/22 00:00 Intake Total 2350 ml Output Total 300 ml Balance 2050 ml Intake Oral 2300 ml IV Total 50 ml Output Urine Total 300 ml # Voids 8 # Bowel Movements 1 Daily Weight Change No General: Alert Neck: Other (dressing in place to neck with small serous drainage noted) Lungs: Clear to Auscultation Heart: Regular Rate Neuro: Normal Speech, Other (irritable) Results/Procedures Lab Laboratory Tests 11/24/22 05:32: White Blood Count 16.7H, Red Blood Count 4.31, Hemoglobin 13.8, Hematocrit 39L, Mean Corpuscular Volume 91, Mean Corpuscular Hemoglobin 32, Mean Corpuscular Hemoglobin Concent 35, Red Cell Distribution Width 12.0, Platelet Count 246, Mean Platelet Volume 10.4 Microbiology 11/22/22 Blood Culture - Preliminary, Resulted Radiology CT neck: IMPRESSION: 1: There is a fluid collection in the sublingual space midline area, concerning for an abscess. There is mass effect upon the adjacent structures with no significant mass effect upon the tongue or airway narrowing. These findings may be seen with Darshan's angina. 2: There is enlargement of the right submandibular gland and sialadenitis is of concern. Unknown if the right submandibular gland disease is the culprit for the sublingual space fluid collection. Assessment/Plan Assessment/Plan (1) Neck abscess Status: Acute Assessment & Plan: s/p drainage per ENT. Appreciate recommendations. Drain in place. Clindamycin and dexamethasone. (2) Dental abscess Status: Acute Assessment & Plan: Will need outpatient dental follow up, referral placed at [facility]. DIANA FRITZ MD Nov 24, 2022 14:05
[2022-11-24 16:01] VITALS: BP 130/77
[2022-11-24] MEDS: NS IV 1000 ML 1,000 ML IV SCH (16:20)
--- NOTE | 2022-11-24 17:12 | Progress Note ---
Standard Progress Note Progress Notes/Assess & Plan Date Seen by a Provider: Nov 24, 2022 Time Seen by a Provider: 17:00 Progress/Assessment & Plan [id number]-24/9-1am Patient had right neck abcess drained wrote for cleocin and decadron patient has drain in place-will need dressing changed in 24 hours drain in [place] for at [facility] 48 hours will consult hospitalist for medical care on wednesday am clear liquid diet hyodromorphone for pain -statistician mathematical instructions written for will need arrangmetns made for tooth to be taken care of -can be as an outpatient [id number] doingwell dressing dxn-uysqykycdgys-rlgvcs out oc-ok with me to discharge-needs tooth out within the next 14 days will send trino hylton cleocin and hydrocodone-number [facility] or me either one discharge insturcitons in chart Final Diagnosis right neck abscess Focused Exam Lactate Level 11/22/22 21:00: Lactic Acid Level 1.15 MERA PAEZ MD Nov 24, 2022 17:12
[2022-11-24] MEDS ORDERED: CLIN300C3 PO (17:37)
[2022-11-24] MEDS ORDERED: ACHD5005 PO (17:37)
[2022-11-24 18:00] VITALS: BP 130/77
== END 2022-11-24 18:06 | disposition home or self-care (01) | DRG 581 ==
LOC: EDUNIT# 20:03 → ER 20:05 → SDC 11-23 00:32 → 4TH 11-23 01:40
PROVIDERS: ADMIT Otolaryngology Otolaryngology/Facial Plastic Surgery; ATTEND Otolaryngology Otolaryngology/Facial Plastic Surgery
PROC: 0W9600Z Drainage of Neck with Drainage Device, Open Approach (ICD-10-PCS; principal; 2022-11-23 00:51)
DX: L02.11 Cutaneous abscess of neck (principal); F17.210 Nicotine dependence, cigarettes, uncomplicated; Z98.1 Arthrodesis status; K04.7 Periapical abscess without sinus
CPT/HCPCS: 36415; 70491; 80048; 80053; 83605; 85007; 85027; 85610; 85730; 87040